=== PATIENT | female | born 1995 | race American Indian/Alaskan Native ===

== ENCOUNTER 2018-01-10 20:12 | Emergency (ER) | payer SELFPAY ==
--- NOTE | 2018-01-10 20:34 | Emergency Department Report ---
ED Shortness of Breath HPI - General Stated Complaint: CP Time Seen by Provider: 01/10/18 20:20 Source: patient, EMS Mode of arrival: Stretcher Limitations: No Limitations - History of Present Illness MD Complaint: shortness of breath, chest pain -: Sudden, hour(s) (1 hour prior to arrival) Severity: severe Pain Scale: 10 Quality: throbbing, sharp Consistency: constant Improves With: rest Worsens With: exertion Context: other (patient is a current smoker and taking oral contraceptives) Associated Symptoms: chest pain, pain with inspiration Treatments Prior to Arrival: oxygen - Related Data Home Oxygen Therapy: No Allergies Allergy/AdvReac Type Severity Reaction Status Date / Time No Known Allergies Allergy Unverified 01/10/18 20:57 ED Review of Systems ROS: Stated complaint: CP Other details as noted in HPI Comment: All other systems reviewed and negative Constitutional: denies: chills, fever Eyes: denies: eye pain, eye discharge, vision change ENT: denies: ear pain, throat pain Respiratory: shortness of breath, SOB with exertion, SOB at rest. denies: cough , wheezing Cardiovascular: chest pain. denies: palpitations Endocrine: no symptoms reported Gastrointestinal: denies: abdominal pain, nausea, diarrhea Genitourinary: denies: urgency, dysuria, discharge Musculoskeletal: denies: back pain, joint swelling, arthralgia Skin: denies: rash, lesions Neurological: denies: headache, weakness, paresthesias Psychiatric: denies: anxiety, depression Hematological/Lymphatic: denies: easy bleeding, easy bruising ED Past Medical Hx - Past Medical History Previous Medical History?: No - Surgical History Past Surgical History?: No - Family History Family history: no significant - Social History Smoking Status: Current Every Day Smoker Substance Use Type: None ED Physical Exam - General General appearance: alert, in no apparent distress - Head Head exam: Present: atraumatic, normocephalic - Eye Eye exam: Present: normal appearance - ENT ENT exam: Present: mucous membranes moist - Neck Neck exam: Present: normal inspection - Respiratory Respiratory exam: Present: normal lung sounds bilaterally. Absent: respiratory distress - Cardiovascular Cardiovascular Exam: Present: regular rate, normal rhythm. Absent: systolic murmur, diastolic murmur, rubs, gallop - GI/Abdominal GI/Abdominal exam: Present: soft, normal bowel sounds - Extremities Exam Extremities exam: Present: normal inspection - Back Exam Back exam: Present: normal inspection - Neurological Exam Neurological exam: Present: alert, oriented X3 - Psychiatric Psychiatric exam: Present: normal affect, normal mood - Skin Skin exam: Present: warm, dry, intact, normal color. Absent: rash ED Course Vital Signs 01/10/18 20:49 Temperature 98.2 F Pulse Rate 81 Respiratory 16 Rate Blood Pressure 105/68 Blood Pressure 105/68 [Right] O2 Sat by Pulse 100 Oximetry ED Medical Decision Making - Lab Data Result diagrams: 01/10/18 21:20 01/10/18 21:20 - EKG Data -: EKG Interpreted by Tn EKG shows normal: sinus rhythm Rate: normal - EKG Data Interpretation: no acute changes, normal EKG - Radiology Data Radiology results: report reviewed, image reviewed - Medical Decision Making Labs are good and CTA is negative for PE. Patient refuses admission to the hospital. AMA signed. Risks discussed with patient, she voiced understanding - Differential Diagnosis PE,, shortness of breath, chest pain, ACS Critical care attestation.: If time is entered above; I have spent that time in minutes in the direct care of this critically ill patient, excluding procedure time. ED Disposition Clinical Impression: Chest pain, Shortness of breath Disposition: DC-07 LEFT AGAINST MED ADVICE Is pt being admited?: No Does the pt Need Aspirin: No Condition: Serious Time of Disposition: 23:17
[2018-01-10 20:57] VITALS: BP 105/68
[2018-01-10] MEDS ORDERED: ASPIRIN PO ONE (20:59)
[2018-01-10 21:45] LABS: Basophils % (Auto) 0.6 % (0.0-1.8); Eosinophils # (Auto) 0.1 K/mm3 (0.0-0.4); Eosinophils % (Auto) 2.1 % (0.0-4.3); Hematocrit 34.9 % (30.3-42.9); Hemoglobin 11.8 gm/dl (10.1-14.3); Lymphocytes # (Auto) 2.5 K/mm3 (1.2-5.4); Lymphocytes % (Auto) 36.2 % (13.4-35.0); Mean Corpuscular HGB Conc 34 % (30-34); Mean Corpuscular Hemoglobin 32 pg (28-32); Mean Corpuscular Volume 93 fl (79-97); Monocytes # (Auto) 0.5 K/mm3 (0.0-0.8); Monocytes % (Auto) 6.6 % (0.0-7.3); Platelet Count 138 K/mm3 (140-440); Red Blood Count 3.74 M/mm3 (3.65-5.03); Red Cell Distribution Width 13.5 % (13.2-15.2)
[2018-01-10 21:57] LABS: INR 0.99 (0.87-1.13)
[2018-01-10 21:58] LABS: Partial Thromboplastin Time 36.8 Sec. (24.2-36.6)
[2018-01-10 21:59] LABS: Alanine Aminotransferase 11 units/L (7-56); Albumin 3.6 g/dL (3.9-5); BUN/Creatinine Ratio 15; Blood Urea Nitrogen 9 mg/dL (7-17); Calcium 8.2 mg/dL (8.4-10.2); Hemolysis Index 1
[2018-01-10 22:44] LABS: HCG Qualitative,Urine Negative (Negative)
--- NOTE | 2018-01-10 22:58 | Cat Scan Report ---
FINAL REPORT EXAM: CT ANGIO CHEST HISTORY: sob/cp TECHNIQUE: CT chest CT angiogram with reconstructions PRIORS: None. FINDINGS: There is no evidence of filling defect within the central pulmonary vasculature to suggest the presence of acute pulmonary embolus. No evidence of mediastinal pathologic lymph node enlargement Heart and great vessels are unremarkable. The aorta is normal in caliber. No focal pulmonary infiltrate identified. No pleural fluid collection seen. No acute pulmonary abnormality noted. Visualized portion of the upper abdomen demonstrates no acute change. IMPRESSION: Negative. No CT evidence of acute pulmonary embolus
== END 2018-01-10 23:25 | disposition left against medical advice (07) ==
LOC: ED 20:12
DX: R06.02 Shortness of breath (principal); R07.9 Chest pain, unspecified
CPT/HCPCS: 36415; 71275; 80053; 81025; 83880; 84484; 84703; 85025; 85379; 85610; 85730; 93005; 93010; 99284; Q9967

== ENCOUNTER 2020-03-10 11:02 | Emergency (ER) | payer SELFPAY ==
[2020-03-10 11:09] VITALS: BP 95/65
--- NOTE | 2020-03-10 12:01 | Emergency Department Report ---
Upper Extremity - HPI Chief Complaint: Extremity Injury, Upper Stated Complaint: LEFT FINGER PAIN Time Seen by Provider: 03/10/20 11:50 Upper Extremity: Left Ring Finger Occurred When: 2 Days Mechanism: Hit with Object (Was trying to catch a ball that struck the tip of the finger causing sudden flexion followed by pain and swelling to the dorsum of the proximal interphalangeal joint) Symptoms: Yes Pain with Movement, Yes Limited Range of Movement, Yes Swelling ED Review of Systems ROS: Stated complaint: LEFT FINGER PAIN Other details as noted in HPI Comment: All other systems reviewed and negative ED Past Medical Hx - Past Medical History Previous Medical History?: No - Surgical History Past Surgical History?: Yes Additional Surgical History: 'Abd surgery after childbirth' - Social History Smoking Status: Never Smoker Substance Use Type: None Upper Extremity Exam - Exam General: Vital signs noted. No distress. Alert and acting appropriately. Head and Torso: No HEENT Abnormality, No Neck Tenderness, No Chest/Lungs Abnormality, No Abdominal Tenderness, No Back Tenderness Shoulder Exam: Yes Normal Range of Motion in Shoulder, No Shoulder Tenderness, No Clavicle Tenderness, No Shoulder Deformity, No AC Joint Tenderness Arm Exam: No Arm/Humerus Tenderness, No Arm Deformity Elbow: No Elbow Tenderness, No Normal Range of Motion in Elbow, No Elbow Deformity Forearm: No Forearm Tenderness, No Forearm Deformity, No Pain with Pronation, No Pain with Supination Wrist: Yes Normal ROM in Wrist, No Wrist Tenderness, No Wrist Deformity, No Snuffbox Tenderness, No Pain with Axial Thumb Compression Hand: Yes Hand Tenderness (At the distal interphalangeal joint of the fourth digit. Some swelling to the proximal side with the DIP in a flexed position unable to extend with active range of motion. Full extension is achieved on passive range of motion. Capillary refills are brisk pulses are 2+.), Yes Digit Tenderness, Yes Digit(s) Deformity (At the fourth distal interphalangeal joint), No Hand Deformity, No Normal ROM in Digit(s), No Tendon Dysfunction CMS Exam: Yes Normal Distal Pulses, Yes Normal Capillary Refill, Yes Normal Distal Sensation, No Broken Skin ED Course Vital Signs 03/10/20 11:04 Temperature 97.5 F L Pulse Rate 84 Respiratory 18 Rate Blood Pressure 95/65 O2 Sat by Pulse 99 Oximetry ED Medical Decision Making - Medical Decision Making 24-year-old female status post trauma to the finger with a ball resulting in a mallet finger of the left hand patient is right-handed. Pain with with m anipulation of the affected joint. Discussed with her the need to follow-up with orthopedic for definitive treatment and utilize a splint for comfort. I will provide her with a list of orthopedic surgeons in this region. I do suspect due to the coronavirus outbreak it may be a prolonged follow-up however her current injuries are not life life threatening nor significantly debilitating Critical care attestation.: If time is entered above; I have spent that time in minutes in the direct care of this critically ill patient, excluding procedure time. ED Disposition Clinical Impression: Mallet deformity of left ring finger Disposition: DC- TO HOME OR SELFCARE Is pt being admited?: No Does the pt Need Aspirin: No Condition: Stable Instructions: Jammed Finger (ED), Ice Pack Application (ED), RICE Therapy (ED) Additional Instructions: Please be sure to follow-up with a hand specialist to treat your mallet finger as we discussed. Utilize ice for the pain as well as anti-inflammatories and Tylenol. Please keep your splint on until you have been followed up by Ortho as well. You may remove briefly to wash your hands. Referrals: PRIMARY CARE, [Primary Care Provider] - 3-5 Days TONO ABRAHAM MD [Staff Physician] - 3-5 Days [facility] [Provider Group] - 3-5 Days [facility] [Provider Group] - 3-5 Days
== END 2020-03-10 12:03 | disposition home or self-care (01) ==
LOC: ED 11:02
DX: M20.012 Mallet finger of left finger(s) (principal)
CPT/HCPCS: 99282

== ENCOUNTER 2020-04-04 20:27 | Inpatient (IN) | payer SELFPAY ==
[2020-04-04] MEDS ORDERED: SODIUM CHLORIDE 0.9% 1000 ML 1,000 ML IV ONE (21:02)
[2020-04-04] MEDS ORDERED: ACETAMINOPHEN 500 MG TAB PO ONE (21:02)
[2020-04-04 21:15] LABS: Bilirubin,Urine NEG (Negative); Blood,Urine LG (Negative); Color,Urine Red (Yellow); Mucus,Urine 2+ /HPF
[2020-04-04 21:16] LABS: RBC,Urine > 182.0 /HPF (0.0-6.0); WBC,Urine > 182.0 /HPF (0.0-6.0)
[2020-04-04] MEDS ORDERED: cefTRIAXone/NS 1 GM/50 ML 1 GM/50 ML BAG IV ONE (21:29)
[2020-04-04 21:39] LABS: Basophils % (Auto) 0.6 % (0.0-1.8); Eosinophils # (Auto) 0.1 K/mm3 (0.0-0.4); Eosinophils % (Auto) 2.1 % (0.0-4.3); Lymphocytes # (Auto) 1.7 K/mm3 (1.2-5.4); Lymphocytes % (Auto) 42.2 % (13.4-35.0); Mean Corpuscular HGB Conc 33 % (30-34); Mean Corpuscular Volume 89 fl (79-97); Monocytes # (Auto) 0.3 K/mm3 (0.0-0.8); Monocytes % (Auto) 6.5 % (0.0-7.3); Platelet Count 122 K/mm3 (140-440); Red Blood Count 3.38 M/mm3 (3.65-5.03); Red Cell Distribution Width 15.8 % (13.2-15.2)
[2020-04-04 22:00] LABS: Alanine Aminotransferase 10 units/L (7-56); Albumin 4.1 g/dL (3.9-5); BUN/Creatinine Ratio 14; Blood Urea Nitrogen 7 mg/dL (7-17); Hemolysis Index 9
[2020-04-05] MEDS ORDERED: LACTATED RINGERS 1,000 ML IV ONE (00:12)
[2020-04-05] MEDS ORDERED: hydrOXYzine PAMOATE 25 MG CAP PO ONE (00:12)
[2020-04-05 02:08] LABS: Basophils % (Auto) 0.5 % (0.0-1.8); Eosinophils # (Auto) 0.1 K/mm3 (0.0-0.4); Eosinophils % (Auto) 1.3 % (0.0-4.3); Hematocrit 23.6 % (30.3-42.9); Hemoglobin 7.8 gm/dl (10.1-14.3); Lymphocytes # (Auto) 1.5 K/mm3 (1.2-5.4); Lymphocytes % (Auto) 29.7 % (13.4-35.0); Mean Corpuscular HGB Conc 33 % (30-34); Mean Corpuscular Volume 90 fl (79-97); Monocytes # (Auto) 0.2 K/mm3 (0.0-0.8); Monocytes % (Auto) 4.9 % (0.0-7.3); Platelet Count 111 K/mm3 (140-440); Red Blood Count 2.63 M/mm3 (3.65-5.03); Red Cell Distribution Width 15.9 % (13.2-15.2)
--- NOTE | 2020-04-05 02:10 | Ultrasound Report ---
OB ultrasound first trimester INDICATION: and bleeding FINDINGS: The uterus measures 10.2 cm in length. The uterus appears to be bicornuate. There appear to be a gestational sacs yolk sacs in both the right and left horns of the bicornuate uterus. Gestational sac on the left measures 14.1 mm corresponding to a 6 week 2 day gestation. Gestational s ac on the right measures 12.1 mm characteristic of a 6 week gestation. Endometrial stripe measures approximately 22.7 mm on the right cornu and 22.6 mm in the left cornu. There is a 2 cm complex cyst in the left ovary. IMPRESSION: There is a bicornuate uterus. There appear to be a gestational sacs each cornu. No poles are identified and no heartbeats identified at this time. Correlation with serum beta hCG level s recommended. Follow-up ultrasound should be obtained as clinically warranted. Signer Name: Ger Benavidez MD Signed: 04/05/2020 2:05 AM Workstation Name: [id number]
[2020-04-05 02:19] LABS: BUN/Creatinine Ratio 12; Blood Urea Nitrogen 6 mg/dL (7-17); Calcium 8.7 mg/dL (8.4-10.2); Hemolysis Index 3
[2020-04-05] MEDS ORDERED: miSOPROStol 200 MCG TAB PO ONE (03:00)
[2020-04-05] MEDS ORDERED: SODIUM CHLORIDE 0.9% 500 ML 500 ML IV ONE (03:03)
--- NOTE | 2020-04-05 03:08 | Emergency Department Report ---
ED Female HPI - General Chief complaint: Vaginal Bleeding Stated complaint: POSS MISCARRIAGE Source: patient, EMS Mode of arrival: Wheelchair Limitations: No Limitations - History of Present Illness Initial comments: Patient is a A0 24-year-old -Malagasy female who is approximately 5 weeks gestation and who presents to the ED with acute onset persistent severe pelvic pain with vaginal bleeding for the last 2 weeks intermittently but which got worse in the last 2 days. Patient states that prior to arrival in the ED, she developed heavy vaginal bleeding with large amounts of blood clots 2 hours prior to arrival in the ED and that the bleeding severity has not improved since onset. Patient states that the pain is aware and she was not sure whether she was on arrival in the ED since her last menstrual cycle was March 14, 2020 and since then she has been having intermittent bleeding with intermittent pain in the pelvic area. Patient denies syncope, chest pain, shortness of breath, dysuria, urinary frequency and urgency, vaginal discharge, headache, fever, chills, diarrhea or low back pain. MD Complaint: vaginal bleeding, pelvic pain -: Gradual, week(s) (2) Location: other (vaginal) Radiation: non-radiating Severity: severe Severity scale (0 -10): 7 Quality: cramping, sharp, aching Consistency: intermittent Improves with: none Worsens with: none Are you Now?: Yes (Unsure initially) Last Menstrual Period: 03/14/20 EDC: 12/19/20 Associated Symptoms: denies other symptoms, vaginal bleeding, abdominal pain, loss of appetite. denies: vaginal discharge, nausea/vomiting, fever/chills, headaches, dysuria, hematuria, rash, seizure, shortness of breath, syncope, weakness - Related Data Sexually active: Yes : 3 Para: 2 A: 0 Allergies Allergy/AdvReac Type Severity Reaction Status Date / Time tramadol Allergy Swelling Verified 04/04/20 20:41 ED Review of Systems ROS: Stated complaint: POSS MISCARRIAGE Other details as noted in HPI Constitutional: denies: chills, fever Eyes: denies: eye pain, eye discharge, vision change ENT: denies: ear pain, throat pain Respiratory: denies: cough, shortness of breath, wheezing Cardiovascular: denies: chest pain, palpitations Endocrine: no symptoms reported Gastrointestinal: abdominal pain (Suprapubic pain). denies: nausea, vomiting, diarrhea Genitourinary: hematuria, abnormal menses (Heavy vaginal bleeding). denies: urgency, dysuria, discharge Musculoskeletal: denies: back pain, joint swelling, arthralgia Skin: denies: rash, lesions Neurological: denies: headache, weakness, paresthesias Psychiatric: denies: anxiety, depression Hematological/Lymphatic: denies: easy bleeding, easy bruising ED Past Medical Hx - Past Medical History Previous Medical History?: No - Surgical History Past Surgical History?: Yes Additional Surgical History: 'Abd surgery after childbirth' - Social History Smoking Status: Current Every Day Smoker Substance Use Type: None ED Physical Exam - General Limitations: No Limitations General appearance: alert, in no apparent distress - Head Head exam: Present: atraumatic, normocephalic, normal inspection - Eye Eye exam: Present: normal appearance, PERRL, EOMI - ENT ENT exam: Present: normal exam, normal orophraynx, mucous membranes moist, TM's normal bilaterally, normal external ear exam - Neck Neck exam: Present: normal inspection, full ROM - Respiratory Respiratory exam: Present: normal lung sounds bilaterally. Absent: respiratory distress, wheezes, rales, rhonchi, chest wall tenderness, accessory muscle use, decreased breath sounds, prolonged expiratory - Cardiovascular Cardiovascular Exam: Present: regular rate, normal rhythm, normal heart sounds. Absent: systolic murmur, diastolic murmur, rubs, gallop - GI/Abdominal GI/Abdominal exam: Present: soft, tenderness (Palpable suprapubic tenderness), normal bowel sounds. Absent: guarding, rebound, hyperactive bowel sounds, hypoactive bowel sounds - Speculum exam: Present: vaginal bleeding (Heavy vaginal bleeding in the vaginal vault) Bi-manual exam: Present: other (Female RN colon and rectal surgeon present) - Extremities Exam Extremities exam: Present: normal inspection, full ROM, normal capillary refill - Back Exam Back exam: Present: normal inspection, full ROM. Absent: tenderness, CVA tenderness (R), muscle spasm, paraspinal tenderness - Neurological Exam Neurological exam: Present: alert, oriented X3, CN II-XII intact, normal gait, reflexes normal - Psychiatric Psychiatric exam: Present: normal affect, normal mood, anxious - Skin Skin exam: Present: warm, dry, intact, normal color. Absent: rash ED Course Vital Signs 04/04/20 04/04/2020 20:39 21:59 02:40 Temperature 98.9 F 98 F Pulse Rate 95 H 101 H 94 H Respiratory 18 18 18 Rate Blood Pressure 96/56 Blood Pressure 113/75 98/58 [Left] O2 Sat by Pulse 99 100 98 Oximetry ED Medical Decision Making - Lab Data Result diagrams: 04/05/20 01:33 04/05/20 01:33 - Radiology Data Radiology results: report reviewed, image reviewed Findings [facility] [address] [place] [address] Ultrasound Report Signed Patient: HANK LOZA MR#: [id number] : 1995 Acct:[id number] Age/Sex: 24 / F ADM Date: 04/04/20 Loc: ED Attending Dr: Ordering Physician: HI GALVAN Date of Service: 04/04/20 Procedure(s): US OB transvaginal Accession Number(s): [id number] cc: HI GALVAN OB ultrasound first trimester INDICATION: and bleeding FINDINGS: The uterus measures 10.2 cm in length. The uterus appears to be bicornuate. There appear to be a gestational sacs yolk sacs in both the right and left horns of the bicornuate uterus. Gestational sac on the left measures 14.1 mm corresponding to a 6 week 2 day gestation. Gestational sac on the right measures 12.1 mm characteristic of a 6 week gestation. Endometrial stripe measures approximately 22.7 mm on the right cornu and 22.6 mm in the left cornu. There is a 2 cm complex cyst in the left ovary. IMPRESSION: There is a bicornuate uterus. There appear to be a gestational sacs each cornu. No poles are identified and no heartbeats identified at this time. Correlation with serum beta hCG levels recommended. Follow-up ultrasound should be obtained as clinically warranted. Signer Name: Ger Benavidez MD Signed: 04/05/2020 2:05 AM Workstation Name: [id number] Transcribed By: SS Dictated By: Ger Benavidez MD Electronically Authenticated By: Ger Benavidez MD Signed Date/Time: 04/05/20204 DD/ 0 TD/TT: - Medical Decision Making This is a A0 24-year-old -Malagasy female who is approximately 5 weeks gestation and who presents to the ED with acute onset persistent severe pelvic pain with vaginal bleeding for the last 2 weeks intermittently but which got worse in the last 2 days. Patient states that prior to arrival in the ED, she developed heavy vaginal bleeding with large amounts of blood clots 2 hours prior to arrival in the ED and that the bleeding severity has not improved since onset. Patient states that the pain is aware and she was not sure whether she was on arrival in the ED since her last menstrual cycle was March 14, 2020 and since then she has been having intermittent bleeding with intermittent pain in the pelvic area. In the ED, patient is alert and oriented x3 and is not in distress but appears anxious, in pain and lethargic. Patient was treated for pain in the ED and also given normal saline 1 L IV bolus x1. Patient was also treated with Vistaril for anxiety. Lab test results were reviewed and show ed hemoglobin of 10.0 and hematocrit of 30.0 with lipase level of 64 and hCG quant of 3140. Urinalysis shows significant urinary tract infection with significant hematuria. Patient was treated in the ED also with Rocephin 1 g IV x1. Transvaginal ultrasound shows a bicornuate uterus. There appear to be a gestational sacs each cornu. No poles are identified and no heartbeats identified at this time. Gestational sac on the left measures 14.1 mm corresponding to a 6 week 2 day gestation. Gestational sac on the right measures 12.1 mm characteristic of a 6 week gestation.Correlation with serum beta hCG levels recommended. Follow-up ultrasound should be obtained as clinically warranted. On reevaluation of the patient, patient vital signs are still stable from the initial vital signs, but the patient complained of lightheadedness and worsening fatigue and generalized weakness. H&H was rechecked and showed hemoglobin of 7.8 and hematocrit of 23.6. Another 1 liter of LR IV bolus x1 was ordered. Patient resting comfortably in the bed as the fluids are infusing. I discussed the patient's case with the ED attending physician Dr. Mcdonough who agreed with plan of care. I paged and discussed the patient's case with the HEALTH PROGRAM ANALYST physician contract graphic designer Dr. Landa who advised that the patient be treated with Cytotec 400mg p.o. x1, and that the patient be typed and screened and be transfused with initial 2 units of blood in the ED and be admitted under her care to the labor and delivery. I briefed Dr. Mcdonough, the ED attending physician of the plan and he agreed with the plan of care. Patient was admitted to labor and delivery under the care of Dr. Landa the HEALTH PROGRAM ANALYST physician contract graphic designer. - Differential Diagnosis Ectopic ; Threatened miscarriage; Subchorionic bleed; UTI, cyst Critical care attestation.: If time is entered above; I have spent that time in minutes in the direct care of this critically ill patient, excluding procedure time. ED Disposition Clinical Impression: Threatened miscarriage in early , Vaginal bleeding affecting early , Abdominal pain during in first trimester, Acute urinary tract infection Disposition: OP ADMIT IP TO THIS HOSP Is pt being admited?: Yes Does the pt Need Aspirin: No Condition: Stable Instructions: Threatened Miscarriage (ED) Referrals: PRIMARY CARE, [Primary Care Provider] - 3-5 Days Time of Disposition: 03:05 Print Language: GREENLANDIC
--- NOTE | 2020-04-05 04:04 | History and Physical Report ---
History of Present Illness Date of examination: 04/05/20 Chief complaint: vaginal bleeding History of present illness: 24yo with bicornuate uterus and vaginal bleeding. US in ED shows twin IUP ~6 weeks, no FHT. Patient has heavy vaginal bleeding, Hb from 10-7.8 in ED. BHCG 3140 mIU/ml NO CP, SOB, dizziness or pelvic pain. Patient did not know she was and is uncooperative in history and decision making. She consent to operative management given her acute blood loss and anemia. She is hemodynamically stable at bedside. Past History Past Surgical History: no surgical history Social history: no significant social history Medications and Allergies Allergies Allergy/AdvReac Type Severity Reaction Status Date / Time tramadol Allergy Swelling Verified 04/04/20 20:41 Review of Systems All systems: negative (vaginal bleeding) - Vital Signs Vital signs: Vital Signs Temp Pulse Resp BP Pulse Ox 98.9 F 95 H 18 96/56 99 04/04/20 20:39 04/04/20 20:39 04/04/20 20:39 04/04/20 20:39 04/04/20 20:39 Temp Pulse Resp BP Pulse Ox 98 F 94 H 18 98/58 98 04/05/20 02:40 04/05/20 02:40 04/05/20 02:40 04/05/20 02:40 04/05/20 02:40 - Physical Exam Cardiovascular: Regular rate Lungs: Positive: Clear to auscultation Abdomen: Positive: normal appearance Genitourinary (Female): Positive: normal external genitalia, normal perenium Uterus: Positive: enlarged (10 weeks size), other (uterine didelphys) Anus/Rectum: Positive: normal perianal skin Extremities: Positive: normal Deep Tendon Reflex Grade: Normal +2 - Obstetrical Cervical Dilatation: 2 Results Result Diagrams: 04/05/20 01:33 04/05/20 01:33 Abnormal lab results 04/04/20 04/04/20 04/04/20 Range/Units 20:53 21:22 21:22 WBC 4.1 L (4.5-11.0) K/mm3 RBC 3.38 L (3.65-5.03) M/mm3 Hgb 10.0 L (10.1-14.3) gm/dl Hct 30.0 L (30.3-42.9) % RDW 15.8 H (13.2-15.2) % Plt Count 122 L (140-440) K/mm3 Lymph % (Auto) 42.2 H (13.4-35.0) % Potassium 3.5 L (3.6-5.0) mmol/L BUN (7-17) mg/dL Creatinine 0.5 L (0.7-1.2) mg/dL Glucose (65-100) mg/dL Lipase 68 H (13-60) units/L HCG, Quant (0-4) mIU/mL Urine WBC (Auto) > 182.0 H (0.0-6.0) /[facility] Crossmatch 04/04/20 04/05/20 04/05/20 Range/Units 21:22 01:33 01:33 WBC (4.5-11.0) K/mm3 RBC 2.63 L (3.65-5.03) M/mm3 Hgb 7.8 L (10.1-14.3) gm/dl Hct 23.6 L D (30.3-42.9) % RDW 15.9 H (13.2-15.2) % Plt Count 111 L (140-440) K/mm3 Lymph % (Auto) (13.4-35.0) % Potassium (3.6-5.0) mmol/L BUN 6 L (7-17) mg/dL Creatinine 0.5 L (0.7-1.2) mg/dL Glucose 104 H (65-100) mg/dL Lipase (13-60) units/L HCG, Quant 3140 H (0-4) mIU/mL Urine WBC (Auto) (0.0-6.0) /[facility] Crossmatch 04/05/20 Range/Units 03:10 WBC (4.5-11.0) K/mm3 RBC (3.65-5.03) M/mm3 Hgb (10.1-14.3) gm/dl Hct (30.3-42.9) % RDW (13.2-15.2) % Plt Count (140-440) K/mm3 Lymph % (Auto) (13.4-35.0) % Potassium (3.6-5.0) mmol/L BUN (7-17) mg/dL Creatinine (0.7-1.2) mg/dL Glucose (65-100) mg/dL Lipase (13-60) units/L HCG, Quant (0-4) mIU/mL Urine WBC (Auto) (0.0-6.0) /[facility] Crossmatch See Detail All other labs normal. Ultrasound: report reviewed Assessment and Plan twin IUP, missed Bicornuate uterus acute anemia HB 7.8 Plan: admission transfuse two units PRBCs cytotec 400mcg POx1 dose OR notified of plan for operative management: suction dilation and curettage NPO, congressional representative for procedure Jessika Landa MD
[2020-04-05] MEDS ORDERED: ceFAZolin/Water 2 GM/20 ML 2 GM/20 ML SYRINGE IV NR (05:00)
--- NOTE | 2020-04-05 05:51 | Anesthesia Consultation ---
Anesthesia Consult and Med Hx - Airway Anesthetic Teeth Evaluation: Good ROM Head & Neck: Adequate Mental/Hyoid Distance: Adequate Mallampati Class: Class I Intubation Access Assessment: Good - Pulmonary Exam CTA: Yes - Cardiac Exam Cardiac Exam: RRR (Missed , hbg 7.8) - Pre-Operative Health Status ASA Pre-Surgery Classification: ASA2, Emergency Proposed Anesthetic Plan: General
--- NOTE | 2020-04-05 05:52 | Anesthesia Day of Surgery ---
Anesthesia Day of Surgery - Day of Surgery Patient Examined: Yes Patient H&P Reviewed: Yes Patient is NPO: Yes
[2020-04-05] MEDS ORDERED: MIDAZOLAM 2 MG/2 ML INJ ONE (05:56)
[2020-04-05] MEDS ORDERED: fentaNYL 100 MCG/2 ML INJ ONE (05:57)
[2020-04-05] MEDS ORDERED: propofoL 200 MG/20 ML VIAL IV ONE (05:58)
[2020-04-05] MEDS ORDERED: ePHEDrine SULFATE 50 MG/1 ML INJ ONE (06:30)
[2020-04-05] MEDS ORDERED: ceFAZolin 1 GM VIAL ONE (06:38)
[2020-04-05] MEDS ORDERED: PHENYLEPHRINE/NS 1,000 MCG/10 ML SYRINGE (OR USE) IV ONE (06:38)
[2020-04-05] MEDS ORDERED: ONDANSETRON 4 MG/2 ML INJ ONE (06:38)
[2020-04-05] MEDS ORDERED: METOCLOPRAMIDE 10 MG/2 ML INJ ONE (06:38)
[2020-04-05] MEDS ORDERED: dexAMETHasone 20 MG/5 ML VIAL ONE (06:38)
[2020-04-05] MEDS ORDERED: SODIUM CHLORIDE 0.9% 100 ML ONE (06:39)
[2020-04-05] MEDS ORDERED: METHYLERGONOVINE MALEATE 0.2 MG/ML VIAL IM ONE ×2 (06:39→06:43)
[2020-04-05] MEDS ORDERED: fentaNYL 100 MCG/2 ML INJ IV PRN (06:45)
--- NOTE | 2020-04-05 07:09 | Operative Report ---
Operative Report Operative Report: Preoperative diagnosis: Multiple gestation, missed abortionx2, Bicornuate Uterus, Acute blood loss anemia Postoperative diagnosis: Same Procedure: Suction Dilatation and Curettage Surgeon:Dr María Landa MD Assist: scrub Anesthesia: GET Complications: none EBL 300ml IV Fluids: 250ml Urine output: 100ml Findings: EUA: uterus~10 weeks, cervix 2cm dilated, POC at OS, no lesions or masses in vaginal vault. US at completion of procedure confirmed empty uterine horn on right and left. Endometrial stripe visablex2 with no retain POC. PROCEDURE: The patient was taken to the operating room where GET anesthesia was administered without difficulty. The patient was prepped and draped in usual sterile fashion in lithotomy position. A priyank speculum was placed. The anterior lip of the cervix was grasped with a single tooth tenaculum. At this time, a 10-mm suction curettage was advanced into the uterine cavity without difficulty and was used to suction contents of the uterus. Following removal of the products of conception, a sharp curette was advanced into the uterine cavity and was used to scrape the four watson of the uterus until a gritty texture was noted. At this time, the suction curette was advanced one additional time to suction any remaining products. Ultrasound was called to the room to confirm complete emptying of both uterine horns. All instruments were removed. Hemostasis was visualized. The patient was stable at the completion of the procedure. Sponge, lap, and instrument counts were correctx2. [id number]. Patient was extubated and taken to the recovery room in stable condition. Monica VALENCIA
--- NOTE | 2020-04-05 07:12 | Ultrasound Report ---
Intraoperative ultrasound INDICATION: D and C FINDINGS: Intraoperative ultrasound was performed for guidance during D and C. 2 images were obtained documenti ng the procedure. Signer Name: Ger Benavidez MD Signed: 04/05/2020 7:08 AM Workstation Name: [id number]
[2020-04-05] MEDS ORDERED: SODIUM CHLORIDE 0.9% 500 ML 500 ML ONE (07:34)
[2020-04-05] MEDS ORDERED: ONDANSETRON 4 MG/2 ML INJ IV PRN (08:00)
--- NOTE | 2020-04-05 09:07 | Post Anesthesia Evaluation ---
- Post Anesthesia Evaluation Patient Participated: Yes Airway Patent: Yes Stable Respiratory Function: Yes Nausea/Vomiting: No Temp > 96.8F: Yes Pain Manageable: Yes Adequeate Hydration: Yes Anesthesia Complications: No
[2020-04-05] MEDS ORDERED: IBUPROFEN 600 MG TAB PO PRN (09:22)
[2020-04-05 10:07] VITALS: BP 105/52
== END 2020-04-05 10:35 | disposition home or self-care (01) | DRG 818 ==
LOC: ED 20:27 → OB 04-05 04:00
PROVIDERS: ADMIT Obstetrics & Gynecology; ATTEND Obstetrics & Gynecology
PROC: 10D17ZZ Extraction of Products of Conception, Retained, Via Natural or Artificial Opening (ICD-10-PCS; principal; 2020-04-05)
PROC: 30233N1 Transfusion of Nonautologous Red Blood Cells into Peripheral Vein, Percutaneous Approach (ICD-10-PCS; 2020-04-05)
DX: O20.0 Threatened abortion (principal); D62 Acute posthemorrhagic anemia; O23.41 Unspecified infection of urinary tract in pregnancy, first trimester; Z88.6 Allergy status to analgesic agent; O99.331 Smoking (tobacco) complicating pregnancy, first trimester; F17.200 Nicotine dependence, unspecified, uncomplicated; O99.011 Anemia complicating pregnancy, first trimester; O34.01 Maternal care for unspecified congenital malformation of uterus, first trimester; Q51.3 Bicornate uterus; Z3A.01 Less than 8 weeks gestation of pregnancy
CPT/HCPCS: 36415; 76801; 76802; 76817; 76998; 80048; 80053; 81001; 83690; 84702; 84703; 85025; 86850; 86900; 86901; 86920; 88305; G0378; J0690; J0696; J1100; J2210; J2250; J2370; J2405; J2704; J2765; J3010; J7030; J7040; J7120; P9016; Q0177

== ENCOUNTER 2021-01-22 12:36 | Emergency (ER) | payer SELFPAY ==
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
[2021-01-22 13:29] VITALS: BP 96/63
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
== END 2021-01-22 14:41 | disposition home or self-care (01) ==
LOC: ED 12:36
DX: S29.011A Strain of muscle and tendon of front wall of thorax, initial encounter (principal); F17.200 Nicotine dependence, unspecified, uncomplicated; Z79.899 Other long term (current) drug therapy; Z88.8 Allergy status to other drugs, medicaments and biological substances; Z98.890 Other specified postprocedural states; V49.59XA Passenger injured in collision with other motor vehicles in traffic accident, initial encounter; Y92.410 Unspecified street and highway as the place of occurrence of the external cause; Y93.89 Activity, other specified; Y99.8 Other external cause status